=== PATIENT | male | born 1950 | race Caucasian/White ===

== ENCOUNTER 2016-12-29 06:07 | Day surgery (SDC) | payer OTHER ==
[2016-12-24 14:54] VITALS: BMI 35.4
[~2016-12-29 06:07] MED LIST: TOBRA 0.3%/DEXAMETH 0.1% OPHTHALMIC SUSP 2.5 ML BTL OD ONE
[2016-12-29] MEDS: FLURBIPROFEN 0.03% OPHTH SOLN 2.5 ML BOTTLE ONE ×3 (06:30→06:54)
[2016-12-29] MEDS: CYCLOPENTOLATE HCL 1% OPHTH SOLN 2 ML BOTTLE ONE ×3 (06:30→06:53)
[2016-12-29] MEDS: TROPICAMIDE 1% OPHTH SOLN 15 ML BOTTLE ONE ×3 (06:30→06:54)
[2016-12-29] MEDS: PHENYLEPHRINE 2.5% OPHTH SOLN 15 ML BOTTLE ONE ×3 (06:30→06:54)
[2016-12-29 06:32] VITALS: TEMP 97.8
[2016-12-29] MEDS ORDERED: TOBRA 0.3%/DEXAMETH 0.1% OPHTHALMIC SUSP 2.5 ML BTL ONE (07:18)
[2016-12-29] MEDS ORDERED: POVIDONE-IODINE 5% OPHTHALMIC PREP 30 ML SOLUTION ONE (07:19)
[2016-12-29] MEDS ORDERED: EPINEPHrine/PF 1 MG/1 ML (1:1,000) AMPULE ONE (07:19)
[2016-12-29] MEDS ORDERED: LIDOCAINE HCL/PF 1% SDV 5ML VIAL ONE (07:19)
[2016-12-29] MEDS ORDERED: LIDOCAINE HCL 2% JELLY (5 ML/TUBE) ONE (07:19)
[2016-12-29] MEDS ORDERED: ePHEDrine SULFATE 50 MG/1 ML AMPULE ONE (07:27)
[2016-12-29] MEDS ORDERED: PHENYLEPHRINE HCL 10 MG/1 ML SINGLE DOSE VIAL ONE (07:27)
[2016-12-29] MEDS ORDERED: MIDAZOLAM HCL 2 MG/2 ML SINGLE DOSE VIAL ONE (07:27)
--- NOTE | 2016-12-29 07:39 | HP ---
History & Physical Update - History History: No Change - Physical Physical: No Change - Assessment Assessment: No Change - Plan Plan: No Change
[2016-12-29] MEDS ORDERED: LIDOCAINE HCL 2% JELLY (5 ML/TUBE) TP ONE (07:41)
[2016-12-29] MEDS ORDERED: POVIDONE-IODINE 5% OPHTHALMIC PREP 30 ML SOLUTION OD ONE (07:46)
[2016-12-29] MEDS ORDERED: CHONDROITIN SU A/HYALUR SOD 1 KIT IO ONE (07:46)
[2016-12-29] MEDS ORDERED: EPINEPHrine/PF 1 MG/1 ML (1:1,000) AMPULE SQ ONE (07:56)
[2016-12-29] MEDS ORDERED: BSS (NA/CA/MG/K) BALANCED SALT SOLUTION OPHTH SOLN 15 ML BOTTLE OD ONE (07:56)
[2016-12-29] MEDS ORDERED: LIDOCAINE HCL 1% PRESERVATIVE FREE - 30ML VIAL IO ONE (07:56)
[2016-12-29] MEDS ORDERED: TOBRA 0.3%/DEXAMETH 0.1% OPHTHALMIC SUSP 2.5 ML BTL OD ONE (08:13)
[2016-12-29 09:39] VITALS: BP 143/89; PULSE 56
--- NOTE | 2016-12-29 13:34 | OP ---
DATE OF OPERATION: 12/29/2016 DIAGNOSIS: Cataract, right eye. PROCEDURE: Phacoemulsification of cataract with posterior chamber lens implant, right eye. ANESTHESIA: MAC. COMPLICATIONS: None. After appropriate consent and clearance, the patient was brought to the operating room and administered fractional anesthesia. The patient was prepped and draped in a sterile manner. Attention was turned to the right eye. A paracentesis site was made and intracameral anesthesia and viscoelastic was injected. A self-sealing wound was made with a keratome. A continuous capsulorrhexis was made. Hydrodissection was performed. The lens was phacoemulsified and aspirated from the eye. Irrigation/aspiration probe was used for cortical cleanup. The lens implant was placed with both haptics and optic in the endocapsular bag. Residual viscoelastic was removed and antibiotic was applied to the surface of the eye. The patient was discharged to the recovery room in stable condition. CINTHIA JACQUES M.D. [id number]
== END 2016-12-29 09:39 | disposition home or self-care (01) ==
LOC: JASU-SURG 06:07
PROVIDERS: ATTEND Ophthalmology
PROC: 08RJ3JZ Replacement of Right Lens with Synthetic Substitute, Percutaneous Approach (ICD-10-PCS; principal; 2016-12-29 07:30)
DX: H26.8 Other specified cataract (principal)